=== PATIENT | male | born 1965 | race African-American/Black ===

== ENCOUNTER 2016-08-27 14:32 | Inpatient (IN) | payer OTHER ==
[2016-08-27 17:06] VITALS: BMI 32.5
[2016-08-27] MEDS ORDERED: IBUPROFEN 400 MG TABLET (FP) PO PRN (17:45)
[2016-08-27] MEDS ORDERED: LOPERAMIDE HCL 2 MG CAPSULE PO PRN (17:45)
[2016-08-27] MEDS ORDERED: diphenhydrAMINE HCL 50 MG CAPSULE PO PRN (17:45)
[2016-08-27] MEDS ORDERED: guaiFENesin/D-METHORPHAN HB 10 ML UNIT-DOSE CUPS PO PRN (17:45)
[2016-08-27] MEDS ORDERED: MAGNESIUM HYDROX 2400MG/30ML ORAL SUSPENSION 30 ML CUP PO PRN (17:45)
[2016-08-27] MEDS ORDERED: chlordiazePOXIDE HCL 25 MG CAPSULE PO PRN (17:45)
[2016-08-27] MEDS ORDERED: chlordiazePOXIDE HCL 25 MG CAPSULE PO ONE (17:45)
[2016-08-27] MEDS ORDERED: MENTHOL/PHENOL 1 EACH UD MM PRN (17:45)
[2016-08-27] MEDS ORDERED: NICOTINE POLACRILEX 2 MG GUM BC PRN (17:45)
[2016-08-27] MEDS ORDERED: MAG HYDROX/AL HYDROX/SIMETH 30 ML UNIT-DOSE CUP PO PRN (17:45)
[2016-08-27] MEDS ORDERED: P-EPHED 60MG/TRIPROLIDI 2.5MG TABLET PO PRN (17:45)
[2016-08-27] MEDS ORDERED: MAGNESIUM CITRATE 300 ML BOTTLE PO PRN (17:45)
--- NOTE | 2016-08-27 17:56 | HP ---
CIWA Score - CIWA Score Nausea/Vomitin-Mild Nausea/No Vomiting Muscle Tremors: 4-Moderate,w/Arms Extend Anxiety: 4-Mod. Anxious/Guarded Agitation: 4-Moderately Restless Paroxysmal Sweats: 3 Orientation: 2-Disoriented Date<2 days Tacttile Disturbances: 1-Very Mild Itch/Numbness Auditory Disturbances: 0-None Visual Disturbances: 0-None Headache: 0-None Present CIWA-Ar Total Score: 19 Admission ROS S - HPI Chief Complaint: withdrawal sx. Allergies/Adverse Reactions: Allergies Allergy/AdvReac Type Severity Reaction Status Date / Time penicillin G Allergy Severe Rash Verified 08/27/16 17:19 History of Present Illness: 50 y/o man with a long hx. of alcoholism is admitted for detox.Pt. has been in previous detox,he reports 2 yrs. sobriety. Exam Limitations: No Limitations - Ebola screening Have you traveled outside of the country in the last 21 days: No Have you had contact with anyone from an Ebola affected area: No Have you been sick,other than usual withdrawal symptoms: No Do you have a fever: No - Review of Systems Constitutional: Diaphoresis EENT: reports: No Symptoms Reported Respiratory: reports: No Symptoms reported Cardiac: reports: No Symptoms Reported GI: reports: Nausea, Abdominal cramping : reports: Frequency Musculoskeletal: reports: Back Pain Integumentary: reports: Sweating Neuro: reports: Tingling, Tremors Endocrine: reports: Increased Hunger, Increased Thirst, Increased Urine Hematology: reports: No Symptoms Reported Psychiatric: reports: No Sypmtoms Reported Other Systems: Reviewed and Negative Patient History - Patient Medical History Hx Anemia: No Hx Asthma: No Hx Chronic Obstructive Pulmonary Disease (COPD): No Hx Cancer: Yes (Leukemia,CML) Hx Cardiac Disorders: No Hx Congestive Heart Failure: Yes Hx Hypertension: Yes Hx Hypercholesterolemia: Yes Hx Pacemaker: No HX Cerebrovascular Accident: No Hx Seizures: No Hx Dementia: No Hx Diabetes: Yes Hx Gastrointestinal Disorders: No Hx Liver Disease: No Hx Genitourinary Disorders: No Hx Sexually Transmitted Disorders: No Hx Renal Disease (ESRD): No Hx Thyroid Disease: No Hx Human Immunodeficiency Virus (HIV): No Hx Hepatitis C: No Hx Depression: No Hx Suicide Attempt: No Hx Bipolar Disorder: No Hx Schizophrenia: No - Patient Surgical History Past Surgical History: Yes Other Surgical History: 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 2nd Anesthesia Reaction: No - PPD History Previous Implant?: Yes Documented Results: Negative w/o proof PPD to be Administered?: Yes - Smoking Cessation Smoking history: Current some day smoker Aproximately how many cigarettes per day: 2 Initiated information on smoking cessation: Yes 'Breaking Loose' booklet given: 08/20/16 - Substance & Tx. History Hx Alcohol Use: Yes Hx Substance Use: Yes Substance Use Type: Alcohol, Cocaine Hx Substance Use Treatment: Yes (detox) - Substances Abused Alcohol Route: Oral Frequency: Daily Amount used: vodka 1 1/2 pint, Beer 1-2 6packs Age of first use: 18 Date of Last Use: 08/26/16 Crack Route: Smoking Frequency: 3-6 times per week Amount used: $50-100.00 Age of first use: 18 Date of Last Use: 08/26/16 Family Disease History - Family Disease History Family Disease History: Diabetes: Father (htn), Heart Disease: Father, Mother ( htn,cva), Other: Mother Admission Physical Exam [facility] - Vital Signs Vital Signs: Vital Signs - 24 hr 08/27/16 17:05 Temperature 96.7 F L Pulse Rate 97 H Respiratory 18 Rate Blood Pressure 144/84 - Physical General Appearance: Yes: Tremorous, Irritable, Sweating, Anxious HEENTM: Yes: Within Normal Limits Respiratory: Yes: Chest Non-Tender, Lungs Clear, Normal Breath Sounds Neck: Yes: Supple Cardiology: Yes: Regular Rhythm, Regular Rate, S1, S2 Abdominal: Yes: Normal Bowel Sounds, Non Tender, Soft Genitourinary: Yes: Within Normal Limits Back: Yes: Within Normal Limits Musculoskeletal: Yes: Within Normal Limits Extremities: Yes: Tremors Neurological: Yes: Fully Oriented, Alert Integumentary: Yes: Diaphoresis Lymphatic: Yes: Within Normal Limits - Diagnostic (1) Alcohol dependence with uncomplicated withdrawal Current Visit: Yes Status: Acute (2) Cocaine dependence, uncomplicated Current Visit: Yes Status: Acute (3) Type II diabetes mellitus Current Visit: Yes Status: Acute Qualifiers: Diabetes mellitus complication status: with other specified complication Diabetes mellitus alf insulin use: with alf use Qualified Code(s): E11.69 - Type 2 diabetes mellitus with other specified complication; Z79.4 - group home (current) use of insulin (4) HTN (hypertension) Current Visit: Yes Status: Acute Qualifiers: Hypertension type: essential hypertension Qualified Code(s): I10 - Essential (primary) hypertension (5) CML (chronic myelocytic leukemia) Current Visit: Yes Status: Acute Cleared for Admission [facility] - Detox or Rehab S Level of Care: Medically Managed Detox Regimen/Protocol: Valium BHS Breath Alcohol Content Breath Alcohol Content: 0 Urine Drug Screen - Results Drug Screen Negative: No Urine Drug Screen Results: MAINE-Cocaine
[2016-08-27] MEDS ORDERED: diazePAM 5 MG TABLET PO ONE (18:11)
[2016-08-27] MEDS ORDERED: diazePAM 5 MG TABLET PO PRN (18:11)
[2016-08-27] MEDS: FUROSEMIDE 20 MG TABLET (FP) PO SCH (19:28)
[2016-08-27] MEDS: ATORVASTATIN CA 40 MG TABLET (FP) PO SCH (22:32)
[2016-08-27] MEDS: THIAMINE HCL 100 MG TABLET (FP) PO SCH (22:32)
[2016-08-27] MEDS: diazePAM 5 MG TABLET PO SCH (22:32)
[2016-08-27] MEDS: CARVEDILOL 3.125 MG TABLET (FP) PO SCH (22:32)
[2016-08-27] MEDS: LISINOPRIL 10 MG TABLET (FP) PO SCH (22:33)
[2016-08-27] MEDS ORDERED: INSULIN (NOVOLOG) ASPART 100 UNITS/ML 10ML VIAL ONE (22:37)
[2016-08-27] MEDS: INSULIN (NOVOLOG) ASPART 100 UNITS/ML 10ML VIAL SQ SCH (22:40)
[2016-08-27] MEDS ORDERED: chlordiazePOXIDE HCL 25 MG CAPSULE PO SCH (23:00)
[2016-08-27 23:18] LABS: URINE APPEARANCE CLEAR; URINE BILIRUBIN NEGATIVE (NEGATIVE); URINE BLOOD NEGATIVE (NEGATIVE); URINE COLOR COLORLESS; URINE GLUCOSE (UA) 3+ (NEGATIVE); URINE KETONE NEGATIVE (NEGATIVE); URINE LEUK ESTERASE NEGATIVE (NEGATIVE); URINE NITRITE NEGATIVE (NEGATIVE); URINE PROTEIN NEGATIVE (NEGATIVE); URINE UROBILINOGEN NEGATIVE E.U./dl (0.2-1.0)
[2016-08-28] MEDS: metFORMIN HCL 500 MG TABLET (FP) PO SCH ×2 (06:26→17:43)
[2016-08-28] MEDS: INSULIN (NOVOLOG) ASPART 100 UNITS/ML 10ML VIAL SQ SCH ×3 (06:27→16:55)
[2016-08-28] MEDS: diazePAM 5 MG TABLET PO SCH ×4 (06:27→22:49)
[2016-08-28] MEDS ORDERED: INSULIN (NOVOLOG) ASPART 100 UNITS/ML 10ML VIAL ONE (06:29)
[2016-08-28 09:53] LABS: MCH 25.9 pg (25.7-33.7); MCHC 31.9 g/dl (32.0-35.9); MEAN CELL VOLUME 81.1 fl (80-96); MEAN PLT VOLUME 10.9 fl (7.5-11.1); PLATELET COUNT 228 K/MM3 (134-434); RDW 16.4 % (11.9-15.9); WHITE BLOOD COUNT 25.8 K/mm3 (4.0-10.0)
[2016-08-28 10:38] LABS: ALBUMIN 3.2 g/dl (3.4-5.0); ALK PHOS 85 U/L (45-117); ANION GAP 9 (8-16); BILIRUBIN,TOTAL 0.5 mg/dL (0.2-1.0); CALCIUM 8.2 mg/dL (8.5-10.1); CO2 24 mmol/L (21-32); CREATININE 0.9 mg/dL (0.7-1.3); GLUCOSE,RANDOM 116 mg/dL (74-106); SGOT/AST 41 U/L (15-37); SGPT/ALT 42 U/L (12-78); TOT PROT 6.6 g/dl (6.4-8.2)
[2016-08-28] MEDS: LISINOPRIL 10 MG TABLET (FP) PO SCH ×2 (11:15→22:48)
[2016-08-28] MEDS: ASPIRIN 81 MG CHEWABLE TABLETS PO SCH (11:15)
[2016-08-28] MEDS: PRENATAL VITAMINS W/ FOLIC ACID TABLET (FP) PO SCH (11:15)
[2016-08-28] MEDS: FUROSEMIDE 20 MG TABLET (FP) PO SCH (11:15)
--- NOTE | 2016-08-28 11:27 | PN ---
[facility] CIWA - CIWA Score Nausea/Vomitin-No Nausea/No Vomiting Muscle Tremors: 4-Moderate,w/Arms Extend Anxiety: 5 Agitation: 4-Moderately Restless Paroxysmal Sweats: 1-Minimal Palms Moist Orientation: 0-Oriented Tacttile Disturbances: 3-Moderate Itch/Numb/Burn Auditory Disturbances: 0-None Visual Disturbances: 0-None Headache: 0-None Present CIWA-Ar Total Score: 17 BHS Progress Note (SOAP) Subjective: ANXIETY,IRRITABILITY,SWEATS,INTERMITTENT SLEEP. Objective: 08/28/16 11:26 Vital Signs Temperature 97.7 F 08/28/16 10:04 Pulse Rate 89 08/28/16 10:04 Respiratory Rate 20 08/28/16 10:04 Blood Pressure 119/82 08/28/16 10:04 O2 Sat by Pulse Oximetry (%) Assessment: 08/28/16 11:26 WITHDRAWAL SX Plan: CONTINUE DETOX
[2016-08-28] MEDS: CARVEDILOL 3.125 MG TABLET (FP) PO SCH ×2 (11:46→22:48)
[2016-08-28] MEDS: PATIENT'S OWN MEDICATION (NON-FORMULARY) (Levofloxacin 750 MG) PO SCH (14:35)
--- NOTE | 2016-08-28 15:06 | EKG ---
Test Reason : Blood Pressure : / mmHG Vent. Rate : 098 BPM Atrial Rate : 098 BPM P-R Int : 174 ms QRS Dur : 120 ms QT Int : 372 ms P-R-T Axes : 065 -24 093 degrees QTc Int : 474 ms NORMAL SINUS RHYTHM INCOMPLETE LEFT BUNDLE BRANCH BLOCK NONSPECIFIC T WAVE ABNORMALITY ABNORMAL ECG NO PREVIOUS ECGS AVAILABLE Confirmed by MICHAELLE CAMERON, EDGAR ([id number]) on 08/28/2016 3:05:51 PM Referred By: dAam Almanzar Confirmed By:EDGAR BRASWELL MD
[2016-08-28] MEDS: ATORVASTATIN CA 40 MG TABLET (FP) PO SCH (22:48)
[2016-08-28] MEDS: THIAMINE HCL 100 MG TABLET (FP) PO SCH (22:48)
[2016-08-28] MEDS ORDERED: chlordiazePOXIDE HCL 25 MG CAPSULE PO SCH (23:00)
[2016-08-29] MEDS: ACETAMINOPHEN 325 MG TABLET (FP) PO PRN (06:14)
[2016-08-29] MEDS: PATIENT'S OWN MEDICATION (NON-FORMULARY) (Levofloxacin 750 MG) PO SCH (06:19)
[2016-08-29] MEDS: metFORMIN HCL 500 MG TABLET (FP) PO SCH ×2 (07:18→16:52)
[2016-08-29] MEDS: INSULIN (NOVOLOG) ASPART 100 UNITS/ML 10ML VIAL SQ SCH ×2 (07:19→16:54)
[2016-08-29 09:33] LABS: MCH 26.1 pg (25.7-33.7); MCHC 32.1 g/dl (32.0-35.9); MEAN CELL VOLUME 81.5 fl (80-96); MEAN PLT VOLUME 10.5 fl (7.5-11.1); PLATELET COUNT 158 K/MM3 (134-434); RDW 16.4 % (11.9-15.9); WHITE BLOOD COUNT 17.8 K/mm3 (4.0-10.0)
[2016-08-29 10:00] LABS: METAMYELOCYTE 2 % (0-2); PLATELET ESTIMATE ADEQUATE (NORMAL)
[2016-08-29 10:01] LABS: HYPOCHROMIA 1+
[2016-08-29] MEDS: CARVEDILOL 3.125 MG TABLET (FP) PO SCH ×2 (10:48→23:09)
[2016-08-29] MEDS: FUROSEMIDE 20 MG TABLET (FP) PO SCH (10:48)
[2016-08-29] MEDS: LISINOPRIL 10 MG TABLET (FP) PO SCH ×2 (10:48→23:09)
[2016-08-29] MEDS: diazePAM 5 MG TABLET PO SCH ×2 (10:48→23:09)
[2016-08-29] MEDS: PRENATAL VITAMINS W/ FOLIC ACID TABLET (FP) PO SCH (10:48)
[2016-08-29] MEDS: ASPIRIN 81 MG CHEWABLE TABLETS PO SCH (10:48)
--- NOTE | 2016-08-29 11:21 | PN ---
[facility] CIWA - CIWA Score Nausea/Vomitin-No Nausea/No Vomiting Muscle Tremors: 4-Moderate,w/Arms Extend Anxiety: 4-Mod. Anxious/Guarded Agitation: 4-Moderately Restless Paroxysmal Sweats: 1-Minimal Palms Moist Orientation: 0-Oriented Tacttile Disturbances: 3-Moderate Itch/Numb/Burn Auditory Disturbances: 0-None Visual Disturbances: 0-None Headache: 0-None Present CIWA-Ar Total Score: 16 BHS Progress Note (SOAP) Subjective: ANXIETY,SWEATS, TREMORS Objective: Vital Signs 08/29/16 08/29/16 06:42 10:50 Temperature 97.8 F 98.3 F Pulse Rate 101 H 109 H Respiratory 18 20 Rate Blood Pressure 121/88 110/72 Laboratory Last Values WBC 17.8 K/mm3 (4.0-10.0) H D 08/29/16 06:20 RBC 4.95 M/mm3 (4.00-5.60) 08/29/16 06:20 Hgb 12.9 GM/dL (11.7-16.9) 08/29/16 06:20 Hct 40.3 % (35.4-49) 08/29/16 06:20 MCV 81.5 fl (80-96) 08/29/16 06:20 MCHC 32.1 g/dl (32.0-35.9) 08/29/16 06:20 RDW 16.4 % (11.9-15.9) H 08/29/16 06:20 Plt Count 158 K/MM3 (134-434) D 08/29/16 06:20 MPV 10.5 fl (7.5-11.1) 08/29/16 06:20 Neutrophils % 72.0 % (42.8-82.8) 08/29/16 06:20 Lymphocytes % 14.0 % (8-40) 08/29/16 06:20 Monocytes % 5.0 % (3.8-10.2) 08/29/16 06:20 Eosinophils % 1.0 % (0-4.5) 08/29/16 06:20 Basophils % 0.0 % (0-2.0) 08/29/16 06:20 Band Neutrophils 2.0 % (0-10) 08/29/16 06:20 Metamyelocytes 2 % (0-2) 08/29/16 06:20 Myelocytes 4 % (0-2) H 08/29/16 06:20 Differential Comment Manual diff done 08/29/16 06:20 Platelet Estimate Adequate (NORMAL) 08/29/16 06:20 Platelet Comment Few large plts 08/29/16 06:20 Hypochromic-Microcytic 1+ 08/29/16 06:20 Sodium 142 mmol/L (136-145) 08/28/16 07:20 Potassium 4.2 mmol/L (3.5-5.1) 08/28/16 07:20 Chloride 109 mmol/L (98-107) H 08/28/16 07:20 Carbon Dioxide 24 mmol/L (21-32) 08/28/16 07:20 Anion Gap 9 (8-16) 08/28/16 07:20 BUN 14 mg/dL (7-18) 08/28/16 07:20 Creatinine 0.9 mg/dL (0.7-1.3) 08/28/16 07:20 Creat Clearance w eGFR > 60 (>60) 08/28/16 07:20 POC Glucometer 186 UNITS (()) 08/29/16 05:30 Random Glucose 116 mg/dL (74-106) H 08/28/16 07:20 Calcium 8.2 mg/dL (8.5-10.1) L 08/28/16 07:20 Total Bilirubin 0.5 mg/dL (0.2-1.0) 08/28/16 07:20 AST 41 U/L (15-37) H 08/28/16 07:20 ALT 42 U/L (12-78) 08/28/16 07:20 Alkaline Phosphatase 85 U/L (45-117) 08/28/16 07:20 Total Protein 6.6 g/dl (6.4-8.2) 08/28/16 07:20 Albumin 3.2 g/dl (3.4-5.0) L 08/28/16 07:20 Urine Color Colorless 08/27/16 19:50 Urine Appearance Clear 08/27/16 19:50 Urine pH 6.0 (5.0-8.0) 08/27/16 19:50 Ur Specific [place] 1.027 (1.001-1.035) 08/27/16 19:50 Urine Protein Negative (NEGATIVE) 08/27/16 19:50 Urine Glucose (UA) 3+ (NEGATIVE) H 08/27/16 19:50 Urine Ketones Negative (NEGATIVE) 08/27/16 19:50 Urine Blood Negative (NEGATIVE) 08/27/16 19:50 Urine Nitrite Negative (NEGATIVE) 08/27/16 19:50 Urine Bilirubin Negative (NEGATIVE) 08/27/16 19:50 Urine Urobilinogen Negative E.U./dl (0.2-1.0) 08/27/16 19:50 Ur Leukocyte Esterase Negative (NEGATIVE) 08/27/16 19:50 RPR Titer Nonreactive (NONREACTIVE) 08/28/16 07:20 Hepatitis C Antibody 0.3 s/co ratio (0.0-0.9) 08/28/16 07:20 Assessment: 08/29/16 11:20 WITHDRAWAL SX Plan: CONTINUE DETOX
[2016-08-29] MEDS ORDERED: chlordiazePOXIDE 5 MG CAPSULE PO SCH (23:00)
[2016-08-29] MEDS: THIAMINE HCL 100 MG TABLET (FP) PO SCH (23:09)
[2016-08-29] MEDS: ATORVASTATIN CA 40 MG TABLET (FP) PO SCH (23:09)
[2016-08-30] MEDS: PATIENT'S OWN MEDICATION (NON-FORMULARY) (Levofloxacin 750 MG) PO SCH (05:54)
[2016-08-30] MEDS ORDERED: INSULIN (NOVOLOG) ASPART 100 UNITS/ML 10ML VIAL ONE (05:56)
[2016-08-30] MEDS: metFORMIN HCL 500 MG TABLET (FP) PO SCH ×2 (07:46→17:14)
[2016-08-30] MEDS: INSULIN (NOVOLOG) ASPART 100 UNITS/ML 10ML VIAL SQ SCH ×2 (07:46→17:14)
[2016-08-30] MEDS: FUROSEMIDE 20 MG TABLET (FP) PO SCH (10:27)
[2016-08-30] MEDS: ASPIRIN 81 MG CHEWABLE TABLETS PO SCH (10:27)
[2016-08-30] MEDS: PRENATAL VITAMINS W/ FOLIC ACID TABLET (FP) PO SCH (10:27)
[2016-08-30] MEDS: LISINOPRIL 10 MG TABLET (FP) PO SCH ×2 (10:27→22:04)
[2016-08-30] MEDS: CARVEDILOL 3.125 MG TABLET (FP) PO SCH ×2 (10:27→23:00)
[2016-08-30] MEDS: diazePAM 5 MG TABLET PO SCH ×2 (10:27→22:04)
--- NOTE | 2016-08-30 13:07 | PN ---
S Progress Note (SOAP) Subjective: Restlessness, interrupted sleep, anxious Objective: Vital Signs Temperature 98.0 F 08/30/16 09:53 Pulse Rate 90 08/30/16 09:53 Respiratory Rate 20 08/30/16 09:53 Blood Pressure 114/81 08/30/16 09:53 O2 Sat by Pulse Oximetry (%) Laboratory Last Values WBC 17.8 K/mm3 (4.0-10.0) H D 08/29/16 06:20 RBC 4.95 M/mm3 (4.00-5.60) 08/29/16 06:20 Hgb 12.9 GM/dL (11.7-16.9) 08/29/16 06:20 Hct 40.3 % (35.4-49) 08/29/16 06:20 MCV 81.5 fl (80-96) 08/29/16 06:20 MCHC 32.1 g/dl (32.0-35.9) 08/29/16 06:20 RDW 16.4 % (11.9-15.9) H 08/29/16 06:20 Plt Count 158 K/MM3 (134-434) D 08/29/16 06:20 MPV 10.5 fl (7.5-11.1) 08/29/16 06:20 Neutrophils % 72.0 % (42.8-82.8) 08/29/16 06:20 Lymphocytes % 14.0 % (8-40) 08/29/16 06:20 Monocytes % 5.0 % (3.8-10.2) 08/29/16 06:20 Eosinophils % 1.0 % (0-4.5) 08/29/16 06:20 Basophils % 0.0 % (0-2.0) 08/29/16 06:20 Band Neutrophils 2.0 % (0-10) 08/29/16 06:20 Metamyelocytes 2 % (0-2) 08/29/16 06:20 Myelocytes 4 % (0-2) H 08/29/16 06:20 Differential Comment Manual diff done 08/29/16 06:20 Platelet Estimate Adequate (NORMAL) 08/29/16 06:20 Platelet Comment Few large plts 08/29/16 06:20 Hypochromic-Microcytic 1+ 08/29/16 06:20 Sodium 142 mmol/L (136-145) 08/28/16 07:20 Potassium 4.2 mmol/L (3.5-5.1) 08/28/16 07:20 Chloride 109 mmol/L (98-107) H 08/28/16 07:20 Carbon Dioxide 24 mmol/L (21-32) 08/28/16 07:20 Anion Gap 9 (8-16) 08/28/16 07:20 BUN 14 mg/dL (7-18) 08/28/16 07:20 Creatinine 0.9 mg/dL (0.7-1.3) 08/28/16 07:20 Creat Clearance w eGFR > 60 (>60) 08/28/16 07:20 POC Glucometer 334 UNITS (()) 08/30/16 05:53 Random Glucose 116 mg/dL (74-106) H 08/28/16 07:20 Calcium 8.2 mg/dL (8.5-10.1) L 08/28/16 07:20 Total Bilirubin 0.5 mg/dL (0.2-1.0) 08/28/16 07:20 AST 41 U/L (15-37) H 08/28/16 07:20 ALT 42 U/L (12-78) 08/28/16 07:20 Alkaline Phosphatase 85 U/L (45-117) 08/28/16 07:20 Total Protein 6.6 g/dl (6.4-8.2) 08/28/16 07:20 Albumin 3.2 g/dl (3.4-5.0) L 08/28/16 07:20 Urine Color Colorless 08/27/16 19:50 Urine Appearance Clear 08/27/16 19:50 Urine pH 6.0 (5.0-8.0) 08/27/16 19:50 Ur Specific [place] 1.027 (1.001-1.035) 08/27/16 19:50 Urine Protein Negative (NEGATIVE) 08/27/16 19:50 Urine Glucose (UA) 3+ (NEGATIVE) H 08/27/16 19:50 Urine Ketones Negative (NEGATIVE) 08/27/16 19:50 Urine Blood Negative (NEGATIVE) 08/27/16 19:50 Urine Nitrite Negative (NEGATIVE) 08/27/16 19:50 Urine Bilirubin Negative (NEGATIVE) 08/27/16 19:50 Urine Urobilinogen Negative E.U./dl (0.2-1.0) 08/27/16 19:50 Ur Leukocyte Esterase Negative (NEGATIVE) 08/27/16 19:50 RPR Titer Nonreactive (NONREACTIVE) 08/28/16 07:20 Hepatitis C Antibody 0.3 s/co ratio (0.0-0.9) 08/28/16 07:20 labs noted will repeat cbc Assessment: withdrawal symptoms Plan: Elevated CBC, unclear etiology. no obvious s/s of infection, will repeat Continue detox
[2016-08-30 18:57] LABS: MCH 25.8 pg (25.7-33.7); MCHC 31.9 g/dl (32.0-35.9); MEAN CELL VOLUME 80.8 fl (80-96); MEAN PLT VOLUME 10.9 fl (7.5-11.1); PLATELET COUNT 208 K/MM3 (134-434); RDW 16.5 % (11.9-15.9); WHITE BLOOD COUNT 19.3 K/mm3 (4.0-10.0)
--- NOTE | 2016-08-30 19:44 | PN ---
[facility] Progress Note Note: Patient is referred for WBC of 19.3. Previous levels noted to be 25.8 on 08/28, 17.8 on 08/19. His vital signs have been stable with no signs of infection. Patient has CML and has been instructed to follow up with his oncologist at [facility] upon discharge. He verbalized understanding.
[2016-08-30 20:48] LABS: METAMYELOCYTE 4 % (0-2)
[2016-08-30 20:49] LABS: ANISOCYTOSIS 1+; BURR CELLS F; PLATELET COMMENT2 NO CLUMPING NOTED; PLATELET ESTIMATE ADEQUATE (NORMAL); POIKILOCYTOSIS FEW
[2016-08-30] MEDS: ACETAMINOPHEN 325 MG TABLET (FP) PO PRN (22:03)
[2016-08-30] MEDS: THIAMINE HCL 100 MG TABLET (FP) PO SCH (22:03)
[2016-08-30] MEDS: ATORVASTATIN CA 40 MG TABLET (FP) PO SCH (22:04)
[2016-08-30] MEDS ORDERED: chlordiazePOXIDE HCL 10 MG CAPSULE PO SCH (23:00)
[2016-08-31] MEDS: ACETAMINOPHEN 325 MG TABLET (FP) PO PRN ×2 (05:56→09:15)
[2016-08-31] MEDS: INSULIN (NOVOLOG) ASPART 100 UNITS/ML 10ML VIAL SQ SCH (06:30)
[2016-08-31] MEDS: metFORMIN HCL 500 MG TABLET (FP) PO SCH (06:30)
[2016-08-31] MEDS: PATIENT'S OWN MEDICATION (NON-FORMULARY) (Levofloxacin 750 MG) PO SCH (07:00)
[2016-08-31 07:09] VITALS: BP 115/72; PULSE 83; TEMP 97
[2016-08-31] MEDS: ASPIRIN 81 MG CHEWABLE TABLETS PO SCH (09:14)
[2016-08-31] MEDS: CARVEDILOL 3.125 MG TABLET (FP) PO SCH (09:14)
[2016-08-31] MEDS: LISINOPRIL 10 MG TABLET (FP) PO SCH (09:14)
[2016-08-31] MEDS: FUROSEMIDE 20 MG TABLET (FP) PO SCH (09:14)
[2016-08-31] MEDS: PRENATAL VITAMINS W/ FOLIC ACID TABLET (FP) PO SCH (09:14)
[2016-08-31] MEDS ORDERED: diazePAM 5 MG TABLET PO SCH (10:00)
--- NOTE | 2016-08-31 13:32 | DS ---
[facility] Detox Discharge Summary Admission Date: 08/27/16 Discharge Date: 08/31/16 - History Present History: Alcohol Dependence, Cocaine Dependence Pertinent Past History: HTN DMT2 Leukemia CML CHF - Physical Exam Results Vital Signs: Vital Signs Temperature 97.0 F L 08/31/16 07:09 Pulse Rate 83 08/31/16 07:09 Respiratory Rate 18 08/31/16 07:09 Blood Pressure 115/72 08/31/16 07:09 O2 Sat by Pulse Oximetry (%) Pertinent Admission Physical Exam Findings: Withdrawal symptoms Laboratory Tests 08/27/16 08/28/16 08/28/16 19:50 06:25 07:20 WBC RBC Hgb Hct MCV MCHC RDW Plt Count MPV Neutrophils % Lymphocytes % Monocytes % Eosinophils % Basophils % Band Neutrophils Metamyelocytes Myelocytes Differential Comment Platelet Estimate Platelet Comment Hypochromic-Microcytic Poikilocytosis Anisocytosis Nick Cells Sodium Potassium Chloride Carbon Dioxide Anion Gap BUN Creatinine Creat Clearance w eGFR POC Glucometer 192 Random Glucose Calcium Total Bilirubin AST ALT Alkaline Phosphatase Total Protein Albumin Urine Color Colorless Urine Appearance Clear Urine pH 6.0 Ur Specific [place] 1.027 Urine Protein Negative Urine Glucose (UA) 3+ H Urine Ketones Negative Urine Blood Negative Urine Nitrite Negative Urine Bilirubin Negative Urine Urobilinogen Negative Ur Leukocyte Esterase Negative RPR Titer Hepatitis C Antibody 0.3 08/28/16 08/28/16 08/28/16 07:20 07:20 07:20 WBC 25.8 H RBC 4.93 Hgb 12.8 Hct 40.0 MCV 81.1 MCHC 31.9 L RDW 16.4 H Plt Count 228 MPV 10.9 Neutrophils % Lymphocytes % Monocytes % Eosinophils % Basophils % Band Neutrophils Metamyelocytes Myelocytes Differential Comment Platelet Estimate Platelet Comment Hypochromic-Microcytic Poikilocytosis Anisocytosis [place] Cells Sodium 142 Potassium 4.2 Chloride 109 H Carbon Dioxide 24 Anion Gap 9 BUN 14 Creatinine 0.9 Creat Clearance w eGFR > 60 POC Glucometer Random Glucose 116 H Calcium 8.2 L Total Bilirubin 0.5 AST 41 H ALT 42 Alkaline Phosphatase 85 Total Protein 6.6 Albumin 3.2 L Urine Color Urine Appearance Urine pH Ur Specific [place] Urine Protein Urine Glucose (UA) Urine Ketones Urine Blood Urine Nitrite Urine Bilirubin Urine Urobilinogen Ur Leukocyte Esterase RPR Titer Nonreactive Hepatitis C Antibody 08/28/16 08/29/16 08/29/16 21:01 05:30 06:20 WBC 17.8 H D RBC 4.95 Hgb 12.9 Hct 40.3 MCV 81.5 MCHC 32.1 RDW 16.4 H Plt Count 158 D MPV 10.5 Neutrophils % 72.0 Lymphocytes % 14.0 Monocytes % 5.0 Eosinophils % 1.0 Basophils % 0.0 Band Neutrophils 2.0 Metamyelocytes 2 Myelocytes 4 H Differential Comment Manual diff done Platelet Estimate Adequate Platelet Comment Few large plts Hypochromic-Microcytic 1+ Poikilocytosis Anisocytosis Nick Cells Sodium Potassium Chloride Carbon Dioxide Anion Gap BUN Creatinine Creat Clearance w eGFR POC Glucometer 89 186 Random Glucose Calcium Total Bilirubin AST ALT Alkaline Phosphatase Total Protein Albumin Urine Color Urine Appearance Urine pH Ur Specific [place] Urine Protein Urine Glucose (UA) Urine Ketones Urine Blood Urine Nitrite Urine Bilirubin Urine Urobilinogen Ur Leukocyte Esterase RPR Titer Hepatitis C Antibody 08/29/16 08/29/16 08/30/16 16:28 23:13 05:53 WBC RBC Hgb Hct MCV MCHC RDW Plt Count MPV Neutrophils % Lymphocytes % Monocytes % Eosinophils % Basophils % Band Neutrophils Metamyelocytes Myelocytes Differential Comment Platelet Estimate Platelet Comment Hypochromic-Microcytic Poikilocytosis Anisocytosis [place] Cells Sodium Potassium Chloride Carbon Dioxide Anion Gap BUN Creatinine Creat Clearance w eGFR POC Glucometer 375 373 334 Random Glucose Calcium Total Bilirubin AST ALT Alkaline Phosphatase Total Protein Albumin Urine Color Urine Appearance Urine pH Ur Specific [place] Urine Protein Urine Glucose (UA) Urine Ketones Urine Blood Urine Nitrite Urine Bilirubin Urine Urobilinogen Ur Leukocyte Esterase RPR Titer Hepatitis C Antibody 08/30/16 08/30/16 08/31/16 14:45 16:26 05:52 WBC 19.3 H RBC 5.01 Hgb 12.9 Hct 40.5 MCV 80.8 MCHC 31.9 L RDW 16.5 H Plt Count 208 D MPV 10.9 Neutrophils % 74.0 Lymphocytes % 9.0 D Monocytes % 4.0 Eosinophils % 2.0 D Basophils % Band Neutrophils 5.0 D Metamyelocytes 4 H D Myelocytes 2 D Differential Comment Platelet Estimate Adequate Platelet Comment No clumping noted Hypochromic-Microcytic Poikilocytosis Few Anisocytosis 1+ [place] Cells F Sodium Potassium Chloride Carbon Dioxide Anion Gap BUN Creatinine Creat Clearance w eGFR POC Glucometer 359 326 Random Glucose Calcium Total Bilirubin AST ALT Alkaline Phosphatase Total Protein Albumin Urine Color Urine Appearance Urine pH Ur Specific [place] Urine Protein Urine Glucose (UA) Urine Ketones Urine Blood Urine Nitrite Urine Bilirubin Urine Urobilinogen Ur Leukocyte Esterase RPR Titer Hepatitis C Antibody Labs noted - Treatment Hospital Course: Detox Protocol Followed, Detoxed Safely, Responded well, Discharged Condition Good - Medication Discharge Medications: Ambulatory Orders Acetaminophen [Tylenol] 650 mg PO Q6H PRN 08/27/16 Aspirin [ASA -] 81 mg PO DAILY 08/27/16 Furosemide [Lasix -] 20 mg PO DAILY 08/27/16 Insulin NPH [Novolin N Vial] 15 units SQ BID 08/27/16 Levofloxacin [Levaquin] 750 mg PO DAILY 08/27/16 Lisinopril [Prinivil] 10 mg PO DAILY 08/27/16 Metformin HCl [Glucophage -] 500 mg PO BID 08/27/16 - Diagnosis (1) Alcohol dependence with uncomplicated withdrawal Status: Acute (2) CML (chronic myelocytic leukemia) Status: Chronic (3) Cocaine dependence, uncomplicated Status: Acute (4) HTN (hypertension) Status: Chronic Qualifiers: Hypertension type: essential hypertension Qualified Code(s): I10 - Essential (primary) hypertension (5) Type II diabetes mellitus Status: Chronic Qualifiers: Diabetes mellitus complication status: with other specified complication Diabetes mellitus half-way insulin use: with half-way use Qualified Code(s): E11.69 - Type 2 diabetes mellitus with other specified complication (6) CHF (congestive heart failure) Status: Chronic - AMA Did Patient Leave Against Medical Advice: No
== END 2016-08-31 09:45 | disposition home or self-care (01) | DRG 774 ==
LOC: YASAS 14:32 → Y3N 18:48
PROVIDERS: ADMIT Internal Medicine; ATTEND Internal Medicine
PROC: HZ2ZZZZ Detoxification Services for Substance Abuse Treatment (ICD-10-PCS; principal; 2016-08-31)
DX: F10.230 Alcohol dependence with withdrawal, uncomplicated (principal); F14.20 Cocaine dependence, uncomplicated; I10 Essential (primary) hypertension; E11.69 Type 2 diabetes mellitus with other specified complication; Z79.4 Long term (current) use of insulin; C94.80 Other specified leukemias not having achieved remission; Z89.422 Acquired absence of other left toe(s); Z89.421 Acquired absence of other right toe(s)
CPT/HCPCS: 36415; 80053; 81003; 85025; 85027; 86593; 93005; 93010